=== PATIENT | female | born 1945 | race Caucasian/White ===

== ENCOUNTER 2016-09-01 08:10 | Emergency (ER) | payer MEDICARE, MEDICAID ==
[2016-09-01 08:23] VITALS: O2SAT 100
--- NOTE | 2016-09-01 09:10 | ED PDOC ---
HPI: Skin/Bite Injury Time Seen by Provider: 09/01/16 08:25 Chief Complaint (Nursing): Psychiatric Evaluation Chief Complaint (Provider): laceration History Per: Family (daughter ) Onset/Duration Of Symptoms: Hrs (x 4) Additional Complaint(s): Funmi Bond is a 70 year old female, with a previous medical history of dementia , schizophrenia and Alzheimer's, who was brought into the ED by her daughter for the evaluation of a laceration she sustained to her left upper lip approximately 4 hours prior to arrival. Patient is unsure of how the injury was sustained but denies any head trauma. Daughter reports mother has eloped out of the apartment 3 times within the past day and being found by police. Daughter states during the last elopement she found her mother with the laceration and is unsure how she sustained the injury. Last tetanus vaccine is unknown. PMD: Brandon Kiran MD Past Medical History Reviewed: Historical Data, Nursing Documentation, Vital Signs Vital Signs: Last Vital Signs Temp 98.5 F 09/01/16 08:22 Pulse 87 09/01/16 08:22 Resp 18 09/01/16 08:22 BP 155/86 H 09/01/16 08:22 Pulse Ox 100 09/01/16 11:59 - Medical History PMH: Alzheimer's Disease, Anxiety, Dementia, Depression, Hypothyroidism, Schizophrenia Denies: Diabetes, Hepatitis, HIV, HTN, Seizures, Sexually Transmitted Disease - Family History Family History: States: Unknown Family Hx - Immunization History Hx Tetanus Toxoid Vaccination: Yes Hx Influenza Vaccination: Yes Hx Pneumococcal Vaccination: No - Home Medications Home Medications: Ambulatory Orders Medication Instructions Recorded Buspirone HCl [Buspirone HCl] 5 mg PO TID 07/07/15 OLANZapine [Zyprexa] 10 mg PO HS 07/07/15 amLODIPine [Norvasc] 5 mg PO DAILY 07/07/15 - Allergies Allergies/Adverse Reactions: Allergies Allergy/AdvReac Type Severity Reaction Status Date / Time No Known Allergies Allergy Verified 09/01/16 08:13 Review of Systems ROS Statement: Except As Marked, All Systems Reviewed And Found Negative Skin: Positive for: Other (left upper lip laceration ) Neurological: Negative for: Other (head trauma ) Physical Exam - Reviewed Nursing Documentation Reviewed: Yes Vital Signs Reviewed: Yes - Physical Exam Appears: Positive for: Well, Non-toxic, No Acute Distress Head Exam: Positive for: ATRAUMATIC, NORMAL INSPECTION, NORMOCEPHALIC Skin: Positive for: Normal Color, Warm, Dry Eye Exam: Positive for: Normal appearance ENT: Positive for: Other (1.5 cm through and through laceration at the sean border edge of the left upper lip ) Neck: Positive for: Normal, Painless ROM, Supple Cardiovascular/Chest: Positive for: Regular Rate, Rhythm Respiratory: Positive for: CNT, Normal Breath Sounds Gastrointestinal/Abdominal: Positive for: Normal Exam, Bowel Sounds, Soft Back: Positive for: Normal Inspection. Negative for: Vertebral Tenderness Extremity: Positive for: Normal ROM Neurologic/Psych: Positive for: Alert - Laboratory Results Result Diagrams: 09/01/16 08:59 09/01/16 08:59 - ECG O2 Sat by Pulse Oximetry: 100 (RA) Pulse Ox Interpretation: Normal Medical Decision Making Medical Decision Making: Initial Impression: laceration Initial Plan: * CT head w/o contrast * EKG * labs * boostrix vaccine * laceration repair * reevaluation 08:46 Consulted plastic surgeon, Dr. Krueger, who claims laceration is small enough to be repaired by ED physician. Laceration repaired with dermabond with reasonable approximation achieved. Patient tolerated procedure well with no emergent complications. Scribe Attestation: Documented by Scarlet Dorantes, acting as a scribe for Fariba Ontiveros MD . Provider Scribe Attestation: All medical record entries made by the Scribe were at my direction and personally dictated by me. I have reviewed the chart and agree that the record accurately reflects my personal performance of the history, physical exam, medical decision making, and the department course for this patient. I have also personally directed, reviewed, and agree with the discharge instructions and disposition. Disposition - Clinical Impression Clinical Impression: Lip laceration - Patient ED Disposition Is Patient to be Admitted: No Doctor Will See Patient In The: Office Counseled Patient/Family Regarding: Diagnosis, Need For Followup - Disposition Referrals: Ishmael Barcenas MD [Family Provider] - Disposition: Routine/Home Disposition Time: 13:00 Condition: IMPROVED Instructions: Skin Adhesive Care (ED), Laceration (ED) Print Language: ICELANDIC - POA Present On Arrival: Falls Or Trauma Laceration - Laceration Repair upper left lip laceration Wound Length (In cm): 1.5 Description Of Wound: Linear (1.5 cm through and through laceration at the sean border edge of the left upper lip ) Wound Closure: Skin Glue
[2016-09-01 09:16] LABS: BASO # 0.1 K/uL (0.0-0.2); BASO % 0.5 % (0.0-2.0); EOS # 0.1 K/uL (0.0-0.7); EOS % 1.1 % (0.0-4.0); HEMOGLOBIN 11.4 g/dL (12.0-16.0); LYMPH # 1.2 K/uL (1.0-4.3); MEAN CELL VOLUME 88.7 fl (81.0-99.0); MEAN CORPUSCULAR HEMOGLOBIN 28.9 pg (27.0-31.0); MEAN CORPUSCULAR HGB CONC 32.6 g/dL (33.0-37.0); MEAN PLATELET VOLUME 7.4 fl (7.2-11.7); MONO % 8.3 % (0.0-10.0); NEUT # 9.3 K/uL (1.8-7.0); NEUT % 80.1 % (50.0-75.0); RBC 3.95 Mil/uL (3.80-5.20); RED CELL DISTRIBUTION WIDTH 13.6 % (11.5-14.5); WHITE BLOOD COUNT 11.6 K/uL (4.8-10.8)
[2016-09-01 09:24] LABS: ALB/GLOB RATIO 1.3 (1.0-2.1); ALBUMIN 4.3 g/dL (3.5-5.0); ALT/SGPT 39 U/L (9-52); AST/SGOT 30 U/L (14-36); BLOOD UREA NITROGEN 26 mg/dl (7-17); CALCIUM 9.9 mg/dL (8.4-10.2); GFR AFRICAN-AMERICAN > 60; GFR NON-AFRICAN AMERICAN > 60
--- NOTE | 2016-09-01 13:31 | CT ---
PROCEDURE: CT HEAD WITHOUT CONTRAST. HISTORY: Fall COMPARISON: None available. TECHNIQUE: Axial computed tomography images were obtained through the head/brain without intravenous contrast. Radiation dose: Total exam DLP = 991.20 mGy-cm. This CT exam was performed using one or more of the following dose reduction techniques: Automated exposure control, adjustment of the mA and/or kV according to patient size, and/or use of iterative reconstruction technique. FINDINGS: HEMORRHAGE: No intracranial hemorrhage. BRAIN: There are moderate chronic microangiopathic changes. There is no mass, mass effect or abnormal extra-axial fluid collection. There is normal density in the larger dural venous sinuses. VENTRICLES: There is moderate age-related global parenchymal volume loss and proportionate enlargement of the ventricles and cortical sulci. There is a cavum septum pellucidum. CALVARIUM: There is no calvarial fracture or extracranial soft tissue swelling. PARANASAL SINUSES: There is chronic left maxillary sinusitis. The remaining included paranasal sinuses are predominantly clear. MASTOID AIR CELLS: Predominantly clear. OTHER FINDINGS: None. IMPRESSION: 1. No acute intracranial abnormality. 2. Moderate chronic microangiopathic changes and moderate age-related global parenchymal volume loss.
[2016-09-01 14:19] VITALS: BP 122/65; PULSE 68; RESP 14; TEMP 98
--- NOTE | 2016-09-01 18:29 | CARD ---
APPROVED REPORT EKG Measurement Heart [id number] <Conclusion> Normal sinus rhythm Possible Left atrial enlargement Borderline ECG
== END 2016-09-01 14:17 | disposition home or self-care (01) ==
LOC: H.ER 08:10
DX: S01.511A Laceration without foreign body of lip, initial encounter (principal); W19.XXXA Unspecified fall, initial encounter; Y92.89 Other specified places as the place of occurrence of the external cause; E03.9 Hypothyroidism, unspecified; F02.80 Dementia in other diseases classified elsewhere, unspecified severity, without behavioral disturbance, psychotic disturbance, mood disturbance, and anxiety; F20.9 Schizophrenia, unspecified; F32.9 Major depressive disorder, single episode, unspecified; F41.9 Anxiety disorder, unspecified; G30.9 Alzheimer's disease, unspecified
CPT/HCPCS: 70450; 80053; 85025; 93005; 96372; 99284; J2060